=== PATIENT | female | born 1965 | race Caucasian/White ===

== ENCOUNTER → 2016-09-28 | Outpatient (CLI) | payer BC ==
--- NOTE | 2016-09-29 07:00 | MM ---
Reason for exam: history of breast cancer, conservation therapy. Last mammogram was performed 1 year and 3 months ago. History: Patient has history of breast cancer at age 49. Family history of breast cancer in 3 paternal aunts at age 50, breast cancer in mother at age 50, and breast cancer in paternal grandmother at age 50. Malignant MG pre op needle loc RT of the right breast, August 06, 2015. Lumpectomy of the right breast, August 2015. Benign US biopsy breast VAD RT of the right breast, July 11, 2015. Malignant US biopsy breast VAD RT of the right breast, June 04, 2015. Radiation therapy of the right breast. Physical Findings: Nurse did not find any significant physical abnormalities on exam. MG 3D Diag Mammo W/Cad JUAN Bilateral CC and MLO view(s) were taken. Prior study comparison: July 11, 2015, right breast MG diagnostic mammo RT wo CAD. June 04, 2015, right breast MG diagnostic mammo RT wo CAD. The breast tissue is heterogeneously dense. This may lower the sensitivity of mammography. Finding: There are typically benign calcifications. Stable post operative changes. These results were verbally communicated with the patient and result sheet given to the patient on 09/28/16. ASSESSMENT: Benign, BI-RAD 2 RECOMMENDATION: Follow-up diagnostic mammogram of both breasts in 1 year.
== END | disposition home or self-care (01) ==
LOC: RADMAMWWP 15:30
PROVIDERS: ATTEND Radiology Diagnostic Radiology
DX: Z85.3 Personal history of malignant neoplasm of breast (principal)
CPT/HCPCS: G0204; G0279

== ENCOUNTER → 2017-07-30 | Outpatient (CLI) | payer BC ==
--- NOTE | 2017-07-30 22:45 | US ---
EXAMINATION TYPE: US thyroid st tissue head/neck DATE OF EXAM: 07/30/2017 COMPARISON: NONE CLINICAL HISTORY: E04.9 GOITER. GLAND SIZE: Right Lobe: 4.1 x 1.1 x 1.7 cm Overall Parenchyma: homogenous Left Lobe: 4.6 x 1.0 x 1.8 cm Overall Parenchyma: homogeneous Isthmus Thickness: 0.3 cm NODULES RIGHT: # of nodules measured on right: 1 1. 0.7 X 0.4 x 0.6 cm hypoechoic solid nodule at the lower pole with well-defined margins; . This nodule is wider than tall and shows no intranodular vascularity. Prior size: no prior LEFT: # of nodules measured on left: 0 ISTHMUS: # of nodules measured in the isthmus: 0 Bilateral neck scanned, no evidence of lymphadenopathy. Thyroid gland is normal in size and homogeneous in echotexture With single 7 mm solid nodule left thy roid lobe. IMPRESSION: Normal-sized thyroid gland without greater than 1 cm solid or cystic nodule identified bilaterally.
== END | disposition home or self-care (01) ==
LOC: RADUSWWP 16:42
PROVIDERS: ATTEND Family Medicine
DX: E04.2 Nontoxic multinodular goiter (principal)
CPT/HCPCS: 76536

== ENCOUNTER → 2017-09-21 | Outpatient (CLI) | payer BC ==
--- NOTE | 2017-09-21 09:21 | FL ---
EXAMINATION TYPE: FL barium swallow DATE OF EXAM: 09/21/2017 CLINICAL HISTORY: Dysphasia when turning head to right. Left neck pain. History of right-sided breast cancer. Heartburn and reflux-like symptoms. TECHNIQUE: A double contrast esophagram is performed utilizing air and barium. A total of 30 second s of fluoroscopic time was utilized during procedure. 22 spot images are saved to PACS. COMPARISON: Same-day CT neck study. FINDINGS: The esophagus shows satisfactory motility and emptying into the stomach during upright drin anthony. There is poor motility noted when patient is supine. No evidence of hiatal hernia or stricture noted. Gastroesophageal reflux was visualized during real-time performance. Incidental clips in right breast from lumpectomy. IMPRESSION: Gastroesophageal reflux observed. Esophageal dysmotility when drinking prone noted.
--- NOTE | 2017-09-21 13:11 | CT ---
EXAMINATION TYPE: CT soft tissue neck w con DATE OF EXAM: 09/21/2017 HISTORY: Patient complains of dysphagia. Left neck and clavicular pain. History of right-sided breast cancer with neck pain when turning head to right. COMPARISON: Thyroid ultrasound July 30, 2017. CT DLP: 794 mGycm. Automated Exposure Control for Dose Reduction was Utilized. TECHNIQUE: CT scan of the neck is performed with IV Contrast, patient injected with 100 mL of Isovue 300, axial images are obtained, coronal and sagittal reformatted images are reviewed. FINDINGS: Airway: Heterogeneous thyroid identified. Small subcentimeter nodule on ultrasound less well-seen on CT. No suspicious greater than 1 cm nodules identified. Airway is patent. Lung apices are clear. Parotid/submandibular glands: No gross abnormality seen. Carotid/Vascular Structures: No significant plaque or stenosis in common or visualized portion of int ernal carotid arteries bilaterally . Osseous Structures: Spine is straightened. Other: Scattered subcentimeter lymph nodes are seen throughout the neck bilaterally. No suspicious gr eater than 1 cm neck adenopathy are present. IMPRESSION: No significant abnormality is seen to account for patient's symptoms.
== END | disposition home or self-care (01) ==
LOC: RADFLMAIN 08:17
PROVIDERS: ATTEND Otolaryngology
DX: M54.2 Cervicalgia (principal); M25.512 Pain in left shoulder; K21.9 Gastro-esophageal reflux disease without esophagitis; K22.4 Dyskinesia of esophagus
CPT/HCPCS: 74220; 70491; Q9967

== ENCOUNTER → 2017-09-30 | Outpatient (CLI) | payer BC ==
--- NOTE | 2017-09-30 13:25 | MM ---
Reason for exam: additional evaluation requested from prior study. Last mammogram was performed 1 year ago. History: Patient has history of breast cancer at age 49. Family history of breast cancer in 3 paternal aunts at age 50, breast cancer in mother at age 50, and breast cancer in paternal grandmother at age 50. Malignant MG pre op needle loc RT of the right breast, August 06, 2015. Lumpectomy of the right breast, August 2015. Benign US biopsy breast VAD RT of the right breast, July 11, 2015. Malignant US biopsy breast VAD RT of the right breast, June 04, 2015. Radiation therapy of the right breast. Physical Findings: Nurse did not find any significant physical abnormalities on exam. MG 3D Diag Mammo W/Cad JUAN Bilateral CC and MLO view(s) were taken. Prior study comparison: September 28, 2016, bilateral MG 3d diag mammo w/cad JUAN. July 11, 2015, right breast MG diagnostic mammo RT wo CAD. The breast tissue is heterogeneously dense. This may lower the sensitivity of mammography. Finding #1: There is stable architectural distortion in the slight upper outer quadrant, posterior position of the right breast. Finding #2: There are typically benign round calcifications in the left breast. Previous mammotome biopsy in the right breast. There is no discrete abnormality. These results were verbally communicated with the patient and result sheet given to the patient on 09/30/17. ASSESSMENT: Benign, BI-RAD 2 RECOMMENDATION: Follow-up diagnostic mammogram of both breasts in 1 year.
== END | disposition home or self-care (01) ==
LOC: RADMAMWWP 10:54
PROVIDERS: ATTEND Radiology Diagnostic Radiology
DX: C50.911 Malignant neoplasm of unspecified site of right female breast (principal); E04.9 Nontoxic goiter, unspecified; Z85.3 Personal history of malignant neoplasm of breast
CPT/HCPCS: 77066; G0279

== ENCOUNTER → 2018-05-11 | Outpatient (CLI) | payer BC ==
--- NOTE | 2018-05-11 17:18 | XR ---
EXAMINATION TYPE: XR cervical spine limited DATE OF EXAM: 05/11/2018 COMPARISON: NONE HISTORY: Difficulty swallowing TECHNIQUE: 3 views FINDINGS: There is mild spurring at C6-7 anteriorly. Disc spaces are overall fairly well-maintained. Posterior elements are intact. Atlantoaxial facet joint is normal. There is normal alignment. IMPRESSION: Mild spondylosis at C6-7. No fracture.
--- NOTE | 2018-05-11 17:21 | XR ---
EXAMINATION TYPE: XR chest 2V DATE OF EXAM: 05/11/2018 COMPARISON: NONE HISTORY: Short of breath TECHNIQUE: Frontal and lateral views of the chest are obtained. FINDINGS: The lungs are clear. There is no heart failure. Costophrenic angles are clear. Bony thorax is intact. IMPRESSION: No active cardiopulmonary disease. Normal heart.
== END | disposition home or self-care (01) ==
LOC: RADXRMAIN 16:29
PROVIDERS: ATTEND Internal Medicine Hematology & Oncology
DX: C50.411 Malignant neoplasm of upper-outer quadrant of right female breast (principal); M47.812 Spondylosis without myelopathy or radiculopathy, cervical region; K21.9 Gastro-esophageal reflux disease without esophagitis; I10 Essential (primary) hypertension; Z71.3 Dietary counseling and surveillance
CPT/HCPCS: 71046; 72040

== ENCOUNTER → 2018-10-03 | Outpatient (CLI) | payer BC ==
--- NOTE | 2018-10-03 10:17 | MM ---
Reason for exam: additional evaluation requested from prior study. Last mammogram was performed 1 year ago. History: Patient has history of breast cancer at age 49. Family history of breast cancer in 3 paternal aunts at age 50, breast cancer in mother at age 50, and breast cancer in paternal grandmother at age 50. Malignant MG pre op needle loc RT of the right breast, August 06, 2015. Lumpectomy of the right breast, August 2015. Benign US biopsy breast VAD RT of the right breast, July 11, 2015. Malignant US biopsy breast VAD RT of the right breast, June 04, 2015. Radiation therapy of the right breast. Physical Findings: Nurse did not find any significant physical abnormalities on exam. MG 3D Diag Mammo W/Cad JUAN Bilateral CC and MLO view(s) were taken. XCCL view(s) were taken of the right breast. Prior study comparison: September 30, 2017, bilateral MG 3d diag mammo w/cad JUAN. September 28, 2016, bilateral MG 3d diag mammo w/cad JUAN. The breast tissue is heterogeneously dense. This may lower the sensitivity of mammography. Finding #1: Architectural distortion in the right breast consistent witn known lumpectomy changes. Finding #2: There are typically benign round, regional calcifications in the left breast. Previous mammotome biopsy in the right breast. There is a chronic nodularity in the left breast. There is no discrete abnormality. These results were verbally communicated with the patient and result sheet given to the patient on 10/03/18. ASSESSMENT: Benign, BI-RAD 2 RECOMMENDATION: Follow-up diagnostic mammogram of both breasts in 1 year.
== END | disposition home or self-care (01) ==
LOC: RADMAMWWP 08:53
PROVIDERS: ATTEND Radiology Diagnostic Radiology
DX: C50.411 Malignant neoplasm of upper-outer quadrant of right female breast (principal)
CPT/HCPCS: 77062; 77066

== ENCOUNTER → 2020-02-26 | Outpatient (CLI) | payer BC ==
--- NOTE | 2020-02-27 09:02 | MM ---
Reason for exam: additional evaluation requested from prior study. Last mammogram was performed 1 year and 5 months ago. History: Patient has history of breast cancer at age 49. Family history of breast cancer in 3 paternal aunts at age 50, breast cancer in mother at age 50, and breast cancer in paternal grandmother at age 50. Malignant MG pre op needle loc RT of the right breast, August 06, 2015. Lumpectomy of the right breast, August 2015. Benign US biopsy breast VAD RT of the right breast, July 11, 2015. Malignant US biopsy breast VAD RT of the right breast, June 04, 2015. Radiation therapy of the right breast. Took hormonal contraceptives for 2 years beginning at age 21. Physical Findings: Nurse did not find any significant physical abnormalities on exam. MG 3D Diag Mammo W/Cad JUAN Bilateral CC and MLO view(s) were taken. Prior study comparison: October 03, 2018, bilateral MG 3d diag mammo w/cad JUAN. September 30, 2017, bilateral MG 3d diag mammo w/cad JUAN. September 28, 2016, bilateral MG 3d diag mammo w/cad JUAN. The breast tissue is heterogeneously dense. This may lower the sensitivity of mammography. Regional punctate calcifications stable left breast. Previous mammotome biopsy in the right breast. Post surgical and post therapy change right breast. Subtle asymmetric densities on the left appear to disperse on spot 3D but tissues are dense. These results were verbally communicated with the patient and result sheet given to the patient on 02/26/20. ASSESSMENT: Incomplete: need additional imaging evaluation, BI-RAD 0 RECOMMENDATION: Ultrasound of the left breast. (superior half)
--- NOTE | 2020-02-27 09:06 | USB ---
Reason for exam: additional evaluation requested from abnormal screening. History: Patient has history of breast cancer at age 49. Family history of breast cancer in 3 paternal aunts at age 50, breast cancer in mother at age 50, and breast cancer in paternal grandmother at age 50. Malignant MG pre op needle loc RT of the right breast, August 06, 2015. Lumpectomy of the right breast, August 2015. Benign US biopsy breast VAD RT of the right breast, July 11, 2015. Malignant US biopsy breast VAD RT of the right breast, June 04, 2015. Radiation therapy of the right breast. Took hormonal contraceptives for 2 years beginning at age 21. US Breast Limited LT Left limited breast ultrasound including focal area of concern, retroareolar and axilla demonstrates a 0.4 x 0.4 x 0.2cm round lesion too small to characterize at 10 o'clock and a 4.0 x 1.4 x 1.4cm lymph node at the axilla, large in size and mildly thickened cortex. Correlate with physical exam findings and 6 month follow up. These results were verbally communicated with the patient and result sheet given to the patient on 02/26/20. ASSESSMENT: Probably benign, BI-RAD 3 RECOMMENDATION: Follow-up diagnostic mammogram and ultrasound of the left breast in 6 months. (axilla) Manage patient on a clinical basis. Correlate with physical exam findings for the left axilla for any lymphadenopathy.
== END | disposition home or self-care (01) ==
LOC: RADMAMWWP 14:17
DX: R92.8 Other abnormal and inconclusive findings on diagnostic imaging of breast (principal); Z85.3 Personal history of malignant neoplasm of breast
CPT/HCPCS: 77062; 77066

== ENCOUNTER 2020-07-25 12:19 | Day surgery (SDC) | payer BC ==
[2020-07-23 10:26] VITALS: BMI 40.0
[~2020-07-25 12:19] MED LIST: ALBUTEROL NEB (CONC) 2.5 MG/0.5 ML INHALATION ONE; LACTATED RINGERS 1,000 ML IV SCH; LIDOCAINE 1% (10MG/ML) FOR IV START INTRADERMA PRN; LIDOCAINE 2% (PF) 20 MG/ML 5 ML VIAL INHALATION ONE; LIDOCAINE VISCOUS 300 MG/15 ML CUP MUCOUS MEM ONE; Pre Op ABX Message 1 EACH MISC MISCELLANE ONE; SODIUM CHLORIDE 0.9% 1,000 ML IV SCH
[2020-07-25] MEDS ORDERED: fentaNYL (PF) 50 MCG/ML 2 ML AMP ONE (13:21)
[2020-07-25] MEDS ORDERED: MIDAZOLAM 2 MG/2 ML VIAL ONE (13:21)
[2020-07-25] MEDS ORDERED: LIDOCAINE 1% INJ 10MG/ML (20 ML MDV) ONE (13:21)
[2020-07-25] MEDS ORDERED: SUCCINYLCHOLINE CHLORIDE 100 MG/5 ML SYR IV ONE (13:21)
[2020-07-25] MEDS ORDERED: ONDANSETRON 4 MG/2 ML VIAL ONE (13:21)
[2020-07-25] MEDS ORDERED: PROPOFOL 10 MG/ML 20 ML VIAL IV ONE (13:21)
--- NOTE | 2020-07-25 14:12 | P.PCN ---
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 Based on that, a flexible bronchoscopy was done. Note that the patient's CAT scan of the chest was within normal limits. The pulmonary function test was also within normal limits This procedure was done in the operating room. The patient was emergently intubated and placed on a mechanical ventilation. The patient was intubated utilizing the glidoscope and this was done by UZIEL. After intubation, the flexible bronchoscope was introduced into the lower airway an airway inspection was done. The distal trachea was within normal limits. Following that the airways inspection included the bilateral mainstem bronchi, right upper lobe bronchus, bronchus intermedius, right middle lobe bronchus and right lower lobe bronchus. Examination left-sided included the left mainstem bronchus, left upper and left lower lobe bronchus is. All of these airways were patent. Airways were somewhat collapsible and there was evidence of bronchomalacia which was mild. There was no significant endobronchial tumors or lesions or foreign bodies identified. The mucosa was at times inflamed. For the most part was within normal limits. The bronchoscope was wedged into the lingula and the bronchioloalveolar lavage was done. A total of 80 mL of fluid was infused and 20 mL was suctioned back. Following that, the bronchoscope was brought up to the ET tube and the ET tube was retracted although it up to the subglottic trachea. Examination of the entire trachea was done and the membranous trachea was causing dynamic obstruction of the trachea causing approximately 20-30% narrowing with exhalation and coughing. This was consistent with dynamic obstruction and tracheomalacia. Following that, the patient was extubated. An upper airway inspection was done. The nasopharynx and oropharynx was within normal limits. The hypopharynx and the larynx showed dynamic obstruction consistent with obstructive apnea. There is considerable amount of adipose tissue that was growing circumferentially within the upper airway. Epiglottis was identified. The vocal cords both situated and vocal cords were within normal limits. The mobility of the vocal cord was normal and symmetrical and there was normal abduction and adduction. The arytenoids were slightly swollen. Yet the vallecula and the rest of the upper airway structures were within normal limits. Copious amount of secretions were identified draining from the patient's sinuses down to the posterior pharynx, larynx and upper airways. In fact the amount of fluid was considerably high and the secretions were clear and liquidy. Suctioning was done. Ultimately, the bronchoscope was passed through the vocal cords and the amniotic trachea was again inspected. No evidence of any subglottic stenosis. There is some mild dynamic obstruction related to tracheomalacia. My final impression is symptomatic dynamic obstruction in the setting of excessive postnasal drainage causing shortness of breath in this patient. She may obviously have also underlying obstructive sleep apnea that needs to be further worked up. Infection is doubtful. No anatomic fixed obstruction of the upper or lower airways.
[2020-07-25 14:19] VITALS: TEMP 97.3
[2020-07-25 16:02] VITALS: BP 162/95
[2020-07-25 16:03] VITALS: PULSE 84; RESP 18
== END 2020-07-25 16:04 | disposition home or self-care (01) ==
LOC: ORWHC2ENDO 12:19
PROVIDERS: ATTEND Internal Medicine Critical Care Medicine
DX: J39.8 Other specified diseases of upper respiratory tract (principal); J98.09 Other diseases of bronchus, not elsewhere classified; J98.4 Other disorders of lung; G47.10 Hypersomnia, unspecified; G47.00 Insomnia, unspecified; R06.83 Snoring; E66.9 Obesity, unspecified; I10 Essential (primary) hypertension; K21.9 Gastro-esophageal reflux disease without esophagitis; Z92.3 Personal history of irradiation; Z85.3 Personal history of malignant neoplasm of breast; Z79.51 Long term (current) use of inhaled steroids; Z79.82 Long term (current) use of aspirin; Z79.899 Other long term (current) drug therapy; Z68.41 Body mass index [BMI] 40.0-44.9, adult; Z98.890 Other specified postprocedural states; Z90.89 Acquired absence of other organs; Z91.09 Other allergy status, other than to drugs and biological substances; Z91.89 Other specified personal risk factors, not elsewhere classified
CPT/HCPCS: 87798 ×3; 87496; 87498; 87529; 88108; 88305; 87252; 87502; 87634; 87070; 87205; 87116; 87102; 87206; 31624; J2250; J2405; J2001; J3010; J0330; J2704

== ENCOUNTER → 2020-10-10 | Outpatient (CLI) | payer BC ==
--- NOTE | 2020-10-11 10:10 | MM ---
Reason for exam: additional evaluation requested from prior study. Last mammogram was performed 7 months ago. History: Patient is postmenopausal and has history of breast cancer at age 49. Family history of breast cancer in 3 paternal aunts at age 50, breast cancer in mother at age 50, and breast cancer in paternal grandmother at age 50. Malignant MG pre op needle loc RT of the right breast, August 06, 2015. Lumpectomy of the right breast, August 2015. Benign US biopsy breast VAD RT of the right breast, July 11, 2015. Malignant US biopsy breast VAD RT of the right breast, June 04, 2015. Radiation therapy of the right breast. Took hormonal contraceptives for 2 years beginning at age 21. Physical Findings: Nurse did not find any significant physical abnormalities on exam. MG 3D Diag Mammo W/Cad JUAN Bilateral CC and MLO view(s) were taken. Prior study comparison: February 26, 2020, bilateral MG 3d diag mammo w/cad JUAN. October 03, 2018, bilateral MG 3d diag mammo w/cad JUAN. The breast tissue is heterogeneously dense. This may lower the sensitivity of mammography. Stable benign calcifications. There is no discrete abnormality. Stable post operative distortion right breast. No significant new findings when compared with previous films. These results were verbally communicated with the patient and result sheet given to the patient on 10/10/20. ASSESSMENT: Incomplete: need additional imaging evaluation, BI-RAD 0 RECOMMENDATION: Ultrasound of the left breast.
--- NOTE | 2020-10-11 10:15 | USB ---
Reason for exam: additional evaluation requested from abnormal screening. History: Patient is postmenopausal and has history of breast cancer at age 49. Family history of breast cancer in 3 paternal aunts at age 50, breast cancer in mother at age 50, and breast cancer in paternal grandmother at age 50. Malignant MG pre op needle loc RT of the right breast, August 06, 2015. Lumpectomy of the right breast, August 2015. Benign US biopsy breast VAD RT of the right breast, July 11, 2015. Malignant US biopsy breast VAD RT of the right breast, June 04, 2015. Radiation therapy of the right breast. Took hormonal contraceptives for 2 years beginning at age 21. US Breast Axilla LT Left breast axilla ultrasound demonstrates a 1.3cm and 1.0cm oval lymph nodes at the axilla. Slight improvement suggested. These results were verbally communicated with the patient and result sheet given to the patient on 10/10/20. ASSESSMENT: Probably benign, BI-RAD 3 RECOMMENDATION: Ultrasound of the left breast in 6 months. Manage patient on a clinical basis.
== END | disposition home or self-care (01) ==
LOC: RADMAMWWP 13:47
PROVIDERS: ATTEND Internal Medicine Hematology & Oncology
DX: R92.8 Other abnormal and inconclusive findings on diagnostic imaging of breast (principal); Z85.3 Personal history of malignant neoplasm of breast
CPT/HCPCS: 77062; 77066

== ENCOUNTER → 2021-05-19 | Outpatient (CLI) | payer BC ==
--- NOTE | 2021-05-19 11:28 | USB ---
Reason for exam: follow-up at short interval from prior study. History: Patient is postmenopausal and has history of breast cancer at age 49. Family history of breast cancer in 3 paternal aunts at age 50, breast cancer in mother at age 50, and breast cancer in paternal grandmother at age 50. Malignant MG pre op needle loc RT of the right breast, August 06, 2015. Lumpectomy of the right breast, August 2015. Benign US biopsy breast VAD RT of the right breast, July 11, 2015. Malignant US biopsy breast VAD RT of the right breast, June 04, 2015. Radiation therapy of the right breast. Took hormonal contraceptives for 2 years beginning at age 21. Physical Findings: Nurse Summary: skin lesion, skin thickening (nurse dw). US Breast Axilla LT Right limited breast ultrasound including focal area of concern, retroareolar and axilla demonstrates no findings, skin changes at 5 o'clock, no sonographic abnormality. Left limited breast ultrasound including focal area of concern, retroareolar and axilla demonstrates a 1.6 x 1.4 x 0.7cm lymph node at the axilla, prominent but with fatty hilum, stable and smaller from before. Left axilla scanned along with right 5 o'clock only. These results were verbally communicated with the patient and result sheet given to the patient on 05/19/21. ASSESSMENT: Benign, BI-RAD 2 RECOMMENDATION: Follow-up diagnostic mammogram of both breasts in 5 months. Back on schedule for October 2021. Manage on a clinical basis with regard to right breast cutaneous lesion.
== END | disposition home or self-care (01) ==
LOC: RADUSWWP 08:26
PROVIDERS: ATTEND Family Medicine
DX: R92.8 Other abnormal and inconclusive findings on diagnostic imaging of breast (principal); Z85.3 Personal history of malignant neoplasm of breast; Z78.0 Asymptomatic menopausal state; Z80.3 Family history of malignant neoplasm of breast

== ENCOUNTER 2021-09-05 06:35 | Day surgery (SDC) | payer BC ==
[2021-09-03 15:47] VITALS: BMI 39.4
[2021-09-05] MEDS ORDERED: LACTATED RINGERS 1,000 ML IV SCH (06:45)
[2021-09-05] MEDS ORDERED: LIDOCAINE 1% (10MG/ML) FOR IV START INTRADERMA ONE (07:00)
[2021-09-05 07:16] VITALS: RESP 16; TEMP 97.5
[2021-09-05] MEDS ORDERED: PROPOFOL 10 MG/ML 20 ML VIAL IV ONE (07:20)
--- NOTE | 2021-09-05 07:40 | P.PCN ---
Date of Procedure: 09/05/21 Procedure(s) Performed: Brief history: Patient is a pleasant 55-year-old white female scheduled for an elective upper endoscopy as well as colonoscopy as a part of evaluation of persistent history of GERD and screening for colon cancer. Procedure performed: Esophagogastroduodenoscopy with biopsy Colonoscopy Preoperative diagnosis: Long-standing history of GERD Screening for colon cancer Anesthesia: MAC Procedure: After informed consent was obtained from the patient was brought into the endoscopy unit and IV sedation was administered by anesthesia under continuous monitoring. Initially upper endoscopy was done. The Olympus GF 160 video endoscope was inserted inserted into the mouth and esophagus intubated without any difficulty and was gradually advanced into the stomach and duodenum and carefully examined. The bulb and second part of the duodenum appeared normal. The scope was then withdrawn into the stomach adequately insufflated with air and upon careful examination the antrum and body, cardia and fundus appeared normal. The scope was then withdrawn into the esophagus. The GE junction was located at 36 cm to the incisors. It appeared regular with no erythema erosions or ulcerations. He was a short tongue of Hernandez's appearing mucosa extending 2-3 mm proximal to the GE junction which was biopsied. Rest of the esophagus appeared normal. Patient tolerated the procedure well. At this time the patient continued to remain sedation. Initial digital rectal examination was normal. Olympus CF 160 video colonoscope was then inserted into the rectum and gradually advanced to the cecum without any difficulty. Careful examination was performed as the scope was gradually being withdrawn. The prep was excellent. The cecum, ascending colon, transverse colon, descending colon, sigmoid colon and rectum appeared normal. At her sigmoid diverticulosis. Retroflexion was performed in the rectum and no lesions were noted. Patient tolerated the procedure well. Impression: 1. 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 Colonoscopy was within normal limits with no colitis or colorectal neoplasia. Scattered sigmoid diverticulosis. Recommendations: Findings of this examination were discussed with the patient as well as a family. She was advised to follow with the biopsy results. If the biopsy reveals Hernandez's esophagus he can have a repeat upper endoscopy in 3 years. Recommend repeat colonoscopy in 10 years.
[2021-09-05 08:01] VITALS: BP 121/73; PULSE 80
== END 2021-09-05 08:20 | disposition home or self-care (01) ==
LOC: ORWHC2ENDO 06:35
PROVIDERS: ATTEND Internal Medicine Gastroenterology
DX: Z12.11 Encounter for screening for malignant neoplasm of colon (principal); K21.9 Gastro-esophageal reflux disease without esophagitis; E66.01 Morbid (severe) obesity due to excess calories; R06.02 Shortness of breath
CPT/HCPCS: 43239; 88305; J2704; G0121

== ENCOUNTER → 2021-10-14 | Outpatient (CLI) | payer BC | END | disposition home or self-care (01) | LOC: LABPAT 14:48 | PROVIDERS: ATTEND Otolaryngology | DX: Z53.9 Procedure and treatment not carried out, unspecified reason (principal) ==

== ENCOUNTER → 2021-10-14 | Outpatient (CLI) | payer BC ==
--- NOTE | 2021-10-15 09:55 | MM ---
Reason for exam: additional evaluation requested from prior study. Last mammogram was performed 1 year ago. History: Patient is postmenopausal and has history of breast cancer at age 49. Family history of breast cancer in 3 paternal aunts at age 50, breast cancer in mother at age 50, and breast cancer in paternal grandmother at age 50. Malignant MG pre op needle loc RT of the right breast, August 06, 2015. Lumpectomy of the right breast, August 2015. Benign US biopsy breast VAD RT of the right breast, July 11, 2015. Malignant US biopsy breast VAD RT of the right breast, June 04, 2015. Radiation therapy of the right breast. Took hormonal contraceptives for 2 years beginning at age 21. Physical Findings: A clinical breast exam by your physician is recommended on an annual basis and results should be correlated with mammographic findings. MG 3D Diag Mammo W/Cad JUAN Bilateral CC and MLO view(s) were taken. XCCL view(s) were taken of the right breast. Prior study comparison: October 10, 2020, bilateral MG 3d diag mammo w/cad JUAN. February 26, 2020, bilateral MG 3d diag mammo w/cad JUAN. The breast tissue is heterogeneously dense. This may lower the sensitivity of mammography. Previous mammotome biopsy in the right breast. Post surgical and post therapy change right breast. Diffuse punctate calcifications left breast unchanged. Results were given to the patient verbally at the time of the exam. ASSESSMENT: Benign, BI-RAD 2 RECOMMENDATION: Follow-up diagnostic mammogram of both breasts in 1 year.
== END | disposition home or self-care (01) ==
LOC: RADMAMWWP 14:17
PROVIDERS: ATTEND Internal Medicine Hematology & Oncology
DX: R92.1 Mammographic calcification found on diagnostic imaging of breast (principal); Z85.3 Personal history of malignant neoplasm of breast; Z78.0 Asymptomatic menopausal state; Z80.3 Family history of malignant neoplasm of breast; Z92.3 Personal history of irradiation
CPT/HCPCS: 77062; 77066

== ENCOUNTER → 2021-11-05 | Outpatient (CLI) | payer BC ==
--- NOTE | 2021-11-06 06:50 | CT ---
EXAMINATION TYPE: CT chest w con DATE OF EXAM: 11/05/2021 COMPARISON: Outside chest x-ray May 13, 2020 HISTORY: SOB, pt states since having radiation for breat CA x3 years CT DLP: 748.7 mGycm. Automated Exposure Control for Dose Reduction was Utilized. TECHNIQUE: CT scan of the thorax is performed following with IV Contrast, patient injected with 100 mL of Isovue 300. FINDINGS: LUNGS: The lungs are grossly clear, there is no concerning greater than 5 mm parenchymal mass or nodu le identified. No significant fibrotic change or honeycombing. There is no pleural effusion or pneum othorax seen. The tracheobronchial tree is patent. MEDIASTINUM: There are no greater than 1 cm hilar or mediastinal lymph nodes. No pericardial effusi on is seen. Heart size upper limits of normal. Ascending aorta measures up to 3.5 cm in diameter. OTHER: Posttreatment changes with scarring and clips in the deep aspect of right breast noted near ax ial image 25. Liver is heterogeneously hypodense with thin-walled cysts in the left hepatic lobe inci dentally noted. IMPRESSION: No significant acute or chronic pulmonary process.
== END | disposition home or self-care (01) ==
LOC: RADCTMAIN 16:50
PROVIDERS: ATTEND Internal Medicine
DX: R06.02 Shortness of breath (principal)
CPT/HCPCS: 71260; Q9967

== ENCOUNTER → 2022-03-30 | Outpatient (CLI) | payer BC ==
--- NOTE | 2022-03-30 17:00 | MR ---
EXAMINATION TYPE: MR orbits wo/w con DATE OF EXAM: 03/30/2022 COMPARISON: Correlation CT soft tissue neck 09/21/2012 HISTORY: 51-year-old female patient with history of right breast cancer, BROW PTOSIS, LEFT, pea sized lump under left eye TECHNIQUE: Multiplanar, multisequence images of the orbits were obtained before and after administrat ion of 10 mL intravenous Gadavist gadolinium contrast. FINDINGS: There is a homogeneously enhancing round, preseptal nodule just below and inferior to the left eye po ssibly involving the lid. Comparison of the patient's 2018 CT showed a 4 mm nodule here. The optic nerves are symmetrical bilaterally. There is no enlargement of extraocular muscles of orbits. Retrobulbar intra or extraconal mass is not seen. Preseptal or post septal orbital abnormality is otherwise not detected. There is a 4 mm hypoenhancing lesion within the left aspect of the pituitary gland that shows interme diate to high T2-weighted signal and isointensity on precontrast T1. Otherwise, the sella and caverno us sinuses appear normal. Slight leftward nasal septal deviation. Mild lobulated mucosal thickening left maxillary sinus. Mild mucosal thickening scattered throughout the left ethmoid air cells. There is some fluid noted within the left sphenoid sinus. Post contrast images demonstrate no other evidence of pathologic enhancement in the orbit or intracr anial cavity. IMPRESSION: 1. Homogeneously enhancing round preseptal nodule just inferior and lateral to the left eye, possibly involving the lid, measuring 6 mm (versus 4 mm on 09/21/2017 in retrospect). Given the indolent behav ior, a benign etiology is suggested. Consider ophthalmologic evaluation for possible inflammatory lid lesion. Clinical follow-up as indicated. 2. A 4 mm hypoenhancing lesion of the left side of the pituitary gland could represent a small Rathke 's cleft cyst or pituitary microadenoma. Correlate with laboratory and clinical assessment and with a 6 month follow-up pituitary MRI.
== END | disposition home or self-care (01) ==
LOC: RADMRIMAIN 08:21
PROVIDERS: ATTEND Internal Medicine Hematology & Oncology
DX: H57.812 Brow ptosis, left (principal)
CPT/HCPCS: 70543; A9585

== ENCOUNTER → 2022-09-25 | Outpatient (CLI) | payer BC ==
[2022-09-25 22:21] LABS: Basophils # (A) 0.06 X 10*3/uL (0.00-0.10); Basophils % (A) 0.7 %; Eosinophils # (A) 0.34 X 10*3/uL (0.04-0.35); HCT 38.8 % (37.2-46.3); HGB 12.2 g/dL (12.0-15.0); Immature Grans, Automated 0.2 %; Lymphocytes # (A) 2.69 X 10*3/uL (0.90-5.00); Lymphocytes % (A) 31.4 %; MCHC 31.4 g/dL (32.0-37.0); MCV 92.4 fL (80.0-97.0); Mean Platelet Volume 11.1 fL (9.5-12.2); Monocytes # (A) 0.51 X 10*3/uL (0.20-1.00); NRBC Per 100 WBC 0 /100 WBCS (0.0-0.0); Neutrophils # (A) 4.94 X 10*3/uL (1.80-7.70); Neutrophils % (A) 57.7 %; Platelet Count 354 X 10*3/uL (140-440); WBC 8.56 X 10*3/uL (4.50-10.00)
[2022-09-26 00:55] LABS: Alternaria alternata IgE <0.10 kU/L; Aspergillus fumagatus IgE <0.10 kU/L; Birch IgE <0.10 kU/L; Cat Epith & Dander IgE 0.77 kU/L; Cladosporian herbarum IgE <0.10 kU/L; Cockroach IgE <0.10 kU/L; Dermato. farinae IgE 1.24 kU/L; Dog Dander IgE <0.10 kU/L; Elm IgE <0.10 kU/L; Maple (Box Elder) IgE <0.10 kU/L; Oak IgE <0.10 kU/L; Ragweed,Common IgE 0.13 kU/L; Red Top (Bentgrass) IgE <0.10 kU/L
== END | disposition home or self-care (01) ==
LOC: LABWHC1 15:36
PROVIDERS: ATTEND Internal Medicine
DX: J45.909 Unspecified asthma, uncomplicated (principal)
CPT/HCPCS: 36415; 82785; 85025; 86003

== ENCOUNTER → 2023-03-18 | Outpatient (CLI) | payer BC ==
--- NOTE | 2023-03-18 11:01 | MM ---
Reason for Exam: Follow-up at short interval from prior study. Last mammogram was performed 1 year(s) and 5 month(s) ago. Patient History: Menarche at age 13. First Full-Term at age 18. Postmenopausal. Breast cancer, age 49. Hormonal Contraceptives for 2 years from age 21 until age 23. 08/2015, Lumpectomy on the Right side. 08/06/2015, Malignant Core Biopsy on the right side. 07/11/2015, Benign Core Biopsy on the right side. 06/04/2015, Malignant Core Biopsy on the right side. Radiation Therapy, right. Paternal grandmother had breast cancer, age 50. Paternal aunt had breast cancer, age 50. Paternal aunt had breast cancer, age 50. Paternal aunt had breast cancer, age 50. Mother had breast cancer, age 50. Tissue Density: The breast tissue is heterogeneously dense. This may lower the sensitivity of mammography. Findings: Analyzed By CAD. Postsurgical and posttreatment changes right breast. Microclip lower inner quadrant right breast from prior biopsy. Diffuse punctate calcifications throughout the left breast are unchanged. Prominent but nonenlarged left axillary lymph node remains unchanged as well. No significant change from prior exams. Overall Assessment: Benign, BI-RAD 2 Management: Screening Mammogram of both breasts in 1 year. . Results were given to the patient verbally at the time of exam. Patient should continue monthly self-breast exams. A clinical breast exam by your physician is recommended on an annual basis. This exam should not preclude additional follow-up of suspicious palpable abnormalities. Electronically signed and approved by: Zan Middleton M.D. Radiologist
== END | disposition home or self-care (01) ==
LOC: RADMAMWWP 10:18
PROVIDERS: ATTEND Family Medicine
DX: R92.8 Other abnormal and inconclusive findings on diagnostic imaging of breast (principal); Z78.0 Asymptomatic menopausal state; Z80.3 Family history of malignant neoplasm of breast; Z85.3 Personal history of malignant neoplasm of breast; Z98.890 Other specified postprocedural states
CPT/HCPCS: 77062; 77066

== ENCOUNTER → 2024-05-09 | Outpatient (CLI) | payer BC ==
--- NOTE | 2024-05-15 13:01 | MM ---
Reason for Exam: Screening (asymptomatic). Last mammogram was performed 1 year(s) and 2 month(s) ago. Patient History: Menarche at age 13. First Full-Term at age 18. Postmenopausal. Breast cancer, age 49. Previous chest radiation therapy at age 49. Hormonal Contraceptives for 2 years from age 21 until age 23. 08/2015, Lumpectomy on the Right side. 08/06/2015, Malignant Core Biopsy on the right side. 07/11/2015, Benign Core Biopsy on the right side. 06/04/2015, Malignant Core Biopsy on the right side. Radiation Therapy, right. Paternal grandmother had breast cancer, age 50. Paternal aunt had breast cancer, age 50. Paternal aunt had breast cancer, age 50. Paternal aunt had breast cancer, age 50. Mother had breast cancer, age 50. Prior Study Comparison: 10/10/2020 Bilateral Diagnostic Mammogram, [facility]. 10/14/2021 Bilateral Diagnostic Mammogram, [facility]. 03/18/2023 Bilateral MG 3D diag mammo w/cad JUAN, [facility]. Tissue Density: The breasts are heterogeneously dense, which may obscure small masses. Findings: Analyzed By CAD. Right breast surgical clips. Right breast: There is no suspicious group of microcalcifications or new suspicious mass. Benign-appearing calcifications right breast. Left breast: Asymmetry left breast MLO view 24 mm from the nipple measuring 6.9 mm. Overall Assessment: Incomplete: need additional imaging evaluation, BI-RAD 0 Management: Screening Mammogram of the left breast. [facility] will attempt to contact patient to return for supplemental views and ultrasound if indicated. Patient should continue monthly self-breast exams. A clinical breast exam by your physician is recommended on an annual basis. This exam should not preclude additional follow-up of suspicious palpable abnormalities. Note on Violette scores and lifetime risk: 1. A Violette score greater than 3% is considered moderate risk. If this is the case, consider specialist referral to assess eligibility for a risk reducing agent. 2. If overall lifetime risk for the development of breast cancer is 20% or higher, the patient may qualify for future screening with alternating mammogram and breast MRI. [facility], , 05/15/2024 12:59 PM. Electronically signed and approved by: Joe Gutierrez DO
== END | disposition home or self-care (01) ==
LOC: RADMAMWWP 12:45
PROVIDERS: ATTEND Family Medicine
DX: Z12.31 Encounter for screening mammogram for malignant neoplasm of breast (principal); R92.333 Mammographic heterogeneous density, bilateral breasts; Z78.0 Asymptomatic menopausal state; Z80.3 Family history of malignant neoplasm of breast
CPT/HCPCS: 77063; 77067

== ENCOUNTER → 2024-06-13 | Outpatient (CLI) | payer BC ==
--- NOTE | 2024-06-14 09:28 | MM ---
Reason for Exam: Additional evaluation requested from abnormal screening. Last screening mammogram was performed 1 month(s) ago. Patient History: Menarche at age 13. First Full-Term at age 18. Postmenopausal. Breast cancer, right, age 49. Previous chest radiation therapy at age 49. Hormonal Contraceptives for 2 years from age 21 until age 23. 08/2015, Lumpectomy on the Right side. 08/06/2015, Malignant Core Biopsy on the right side. 07/11/2015, Benign Core Biopsy on the right side. 06/04/2015, Malignant Core Biopsy on the right side. Radiation Therapy, right. Paternal grandmother had breast cancer, age 50. Paternal aunt had breast cancer, age 50. Paternal aunt had breast cancer, age 50. Paternal aunt had breast cancer, age 50. Mother had breast cancer, age 50. Prior Study Comparison: 10/14/2021 Bilateral Diagnostic Mammogram, [facility]. 03/18/2023 Bilateral MG 3D diag mammo w/cad JUAN, [facility]. 05/09/2024 Bilateral MG 3D screening mammo w/cad, [facility]. Tissue Density: Left: The breasts are heterogeneously dense, which may obscure small masses. Findings: Analyzed By CAD. Under compression no suspicious persistent nodular densities. There are scattered round calcifications within the left breast. No suspicious groups of microcalcifications, spiculated or lobular masses, architectural distortion or other secondary signs of malignancy are mammographically apparent. Overall Assessment: Probably benign, BI-RAD 3 Management: Diagnostic Mammogram of the left breast in 6 months. A negative mammogram report should not preclude additional follow up of suspicious palpable abnormalities. Patient should continue monthly self breast exam. A clinical breast exam by your physician is recommended on an annual basis and results should be correlated with mammographic findings. Note on Violette scores and lifetime risk: 1. A Violette score greater than 3% is considered moderate risk. If this is the case, consider specialist referral to assess eligibility for a risk reducing agent. 2. If overall lifetime risk for the development of breast cancer is 20% or higher, the patient may qualify for future screening with alternating mammogram and breast MRI. [facility], , 06/13/2024 2:45 PM. Electronically signed and approved by: Guille Porter D.O. Radiologis
== END | disposition home or self-care (01) ==
LOC: RADMAMWWP 13:56
PROVIDERS: ATTEND Family Medicine
DX: R92.333 Mammographic heterogeneous density, bilateral breasts (principal); C50.911 Malignant neoplasm of unspecified site of right female breast; R92.8 Other abnormal and inconclusive findings on diagnostic imaging of breast; Z78.0 Asymptomatic menopausal state; Z80.3 Family history of malignant neoplasm of breast; Z92.3 Personal history of irradiation
CPT/HCPCS: 77061; 77065

== ENCOUNTER 2024-08-23 11:30 | Day surgery (SDC) | payer BC ==
[2024-08-23] MEDS ORDERED: LACTATED RINGERS 1,000 ML IV SCH (12:05)
[2024-08-23 12:26] VITALS: TEMP 98
[2024-08-23] MEDS: LACTATED RINGERS 1,000 ML IV ONE (12:26)
[2024-08-23] MEDS ORDERED: LIDOCAINE 2% (PF) 20 MG/ML 5 ML VIAL ONE (12:40)
[2024-08-23] MEDS ORDERED: PROPOFOL 10 MG/ML 20 ML VIAL IV ONE (12:40)
--- NOTE | 2024-08-23 12:58 | P.PCN ---
Date of Procedure: 08/23/24 Procedure(s) Performed: BRIEF HISTORY: Patient is a 58-year-old, pleasant, white female scheduled for an upper endoscopy as a part of evaluation of intermittent dysphagia to solids for the last 6 months duration. She does have a history of GERD and is currently on omeprazole 20 mg daily.. PROCEDURE PERFORMED: Esophagogastroduodenoscopy with biopsy. PREOPERATIVE DIAGNOSIS: Longstanding history of GERD and intermittent dysphagia to solids. IV sedation per anesthesia. PROCEDURE: After informed consent was obtained, the patient was brought into the endoscopy unit. IV sedation was administered by Anesthesia under continuous monitoring. Initially the Olympus GIF-140 video endoscope was inserted into the mouth. Esophagus intubated without any difficulty. It was gradually advanced into the stomach and duodenum and carefully examined. The bulb and the second part of the duodenum appeared normal. The scope at this time was withdrawn to the stomach, adequately insufflated with air, and upon careful examination, mucosa of the antrum, patchy areas of erythema consistent with gastritis and biopsies were done from this area. Mucosa of the body, cardia and the fundus appeared normal. The scope was then withdrawn into the esophagus. The GE junction was located at 39 cm from the incisors. The mucosal folds in the mid and distal esophagus with thickened with whitish exudates noted suspicious for eosinophilic esophagitis versus Dannielle esophagitis and multiple biopsies were done from the mid and distal esophagus. The rest of the esophagus appeared normal, no evidence of esophageal stricture and the patient tolerated the procedure well. IMPRESSION: 1. Thickened mid and distal esophageal folds with exudates suspicious for eosinophilic esophagitis versus Dannielle esophagitis status post multiple biopsies. 2. No evidence of esophageal stricture 3. Mild epigastric. RECOMMENDATIONS: The findings of this examination were discussed with the patient as well as her family. She will continue with Prilosec 20 mg daily and follow antireflux measures. Follow-up in the office in 2 weeks.
[2024-08-23 13:19] VITALS: BP 149/94; PULSE 84; RESP 16
== END 2024-08-23 13:41 | disposition home or self-care (01) ==
LOC: ORWHC2ENDO 11:30
PROVIDERS: ATTEND Internal Medicine Gastroenterology
DX: K29.50 Unspecified chronic gastritis without bleeding (principal); B37.81 Candidal esophagitis; K21.9 Gastro-esophageal reflux disease without esophagitis; I49.9 Cardiac arrhythmia, unspecified; I10 Essential (primary) hypertension; J45.909 Unspecified asthma, uncomplicated; Z79.82 Long term (current) use of aspirin; Z79.899 Other long term (current) drug therapy; Z85.3 Personal history of malignant neoplasm of breast
CPT/HCPCS: 88305; 43239; J2704; J2003

== ENCOUNTER 2024-10-26 06:05 | Day surgery (SDC) | payer BC ==
[2024-10-26] MEDS: IV FLUID CONTINUATION 1,000 ML IV ONE (06:31)
[2024-10-26 06:57] VITALS: RESP 16; TEMP 97.5
[2024-10-26] MEDS ORDERED: PROPOFOL 10 MG/ML 20 ML VIAL IV ONE (07:02)
[2024-10-26] MEDS: LACTATED RINGERS 1,000 ML IV SCH (07:02)
[2024-10-26] MEDS ORDERED: LIDOCAINE 1% INJ 10MG/ML (20 ML MDV) ONE (07:02)
[2024-10-26 07:43] VITALS: BP 138/84; PULSE 74
[2024-10-26 07:45] LABS: HCT 39.6 % (37.2-46.3); HGB 12.8 g/dL (12.0-15.0); MCH 29.7 pg (27.0-32.0); MCHC 32.3 g/dL (32.0-37.0); MCV 91.9 fL (80.0-97.0); Mean Platelet Volume 11.8 fL (9.5-12.2); RBC 4.31 10*6/uL (4.10-5.20); RDW 14.5 % (11.5-14.5)
[2024-10-26 07:55] LABS: WBC 52.27 10*3/uL (4.50-10.00)
[2024-10-26 09:38] LABS: Eosinophils # (M) 0.52 k/uL (0-0.7); Monocytes # (M) 2.61 k/uL (0-1.0); Neutrophils % (M) 60 %; Nucleated Red Blood Cells 0 /100 WBC (0-0)
[2024-10-26 09:40] LABS: Lymphocytes # (M) 8.36 k/uL (1.0-4.8)
[2024-10-26 09:47] LABS: Band Neutrophils % 5 %; Metamyelocytes # (M) 2.61 k/uL (0); Metamyelocytes % 5 %; Neutrophils # (M) 33.97 k/uL (1.3-7.7)
[2024-10-26 09:48] LABS: Blast Cells # (M) 0.52 k/uL (0); Myelocytes # (M) 3.14 k/uL (0); Myelocytes % 6 %
[2024-10-26 09:50] LABS: Basophils # (M) 0.52 k/uL (0-0.2); Promyelocytes # (M) 0.52 k/uL (0); Promyelocytes % 1 %; Total Cells Counted 203
[2024-10-26 09:51] LABS: RBC Morphology Normal
--- NOTE | 2024-10-26 14:55 | OP ---
OPERATIVE REPORT DATE OF SERVICE : 10/26/2024 PREOPERATIVE DIAGNOSIS: Leukocytosis. POSTOPERATIVE DIAGNOSIS: Leukocytosis. ANESTHESIA: Local with IV systemic sedation. PROCEDURE IN DETAIL: Utilizing sterile technique, the skin overlying the right iliac crest was prepared with Betadine and alcohol. After adequate sterile draping and local anesthesia with 1% lidocaine and systemic sedation, size 11 x 4 inch Jamshidi needle was utilized to access the periosteum with ease. A total of 17 mL of aspirate as well as 5 cm bone core biopsies were obtained. The patient tolerated the procedure very well. There was no immediate procedure related complication. TOTAL BLOOD LOSS: Less than 1 mL. RESULTS: Pending. MMODL / IJN: [id number] /
== END 2024-10-26 08:02 | disposition home or self-care (01) ==
LOC: OR 06:05
PROVIDERS: ATTEND Internal Medicine Hematology & Oncology
DX: D72.829 Elevated white blood cell count, unspecified (principal)
CPT/HCPCS: 85025; 38222; J2003; J2704

== ENCOUNTER → 2024-11-09 | Outpatient (CLI) | payer BC ==
--- NOTE | 2024-11-09 15:15 | US ---
EXAMINATION TYPE: US venous doppler duplex LE DATE OF EXAM: 11/09/2024 2:40 PM COMPARISON: Prior left lower extremity ultrasound 2014 CLINICAL INDICATION: Female, 58 years old with history of R22.41,R22.42 LOCALIZED SWELLING, MASS AND LUMP, L; edema, Pain TECHNIQUE: The lower extremity deep venous system is examined utilizing real time linear array sonog dangelo with graded compression, color doppler sonography, and spectral doppler. SIDE PERFORMED: Bilateral FINDINGS: VESSELS IMAGED: Common Femoral Vein Deep Femoral Vein Greater Saphenous Vein * Femoral Vein Popliteal Vein Small Saphenous Vein * Proximal Calf Veins (* superficial vessels) Right Leg: Negative for DVT, Color Doppler imaging shows patency of the vessels. Spectral waveforms are within normal limits. Left Leg: Negative for DVT, Color Doppler imaging shows patency of the vessels. Spectral waveforms a re within normal limits. exam limited by edema and habitus IMPRESSION: Suboptimal study without acute DVT seen in either lower extremity. [facility], , 11/09/2024 3:12 PM
== END | disposition home or self-care (01) ==
LOC: RADUSWWP 13:54
PROVIDERS: ATTEND Internal Medicine Hematology & Oncology
DX: R22.43 Localized swelling, mass and lump, lower limb, bilateral (principal); M79.662 Pain in left lower leg
CPT/HCPCS: 93970